=== PATIENT | female | born 1995 | race Caucasian/White ===

== ENCOUNTER 2024-04-03 00:42 | Emergency (ER) | payer SELFPAY ==
[~2024-04-03] VITALS: Ht 170.2 cm; Wt 73.0 kg
[2024-04-03 00:49] VITALS: BP 113/66; PULSE 100; RESP 16; TEMP 98.1; O2SAT 97
[2024-04-03] MEDS: TETANUS, DIPHTHERIA, PERTUSSIS VAC/PF 0.5ML (>10YR OLD) IM ONE (02:45)
== END 2024-04-03 03:06 | disposition home or self-care (01) ==
LOC: ER 00:57
DX: S01.81XA Laceration without foreign body of other part of head, initial encounter (principal); X58.XXXA Exposure to other specified factors, initial encounter; Y93.89 Activity, other specified; Y92.89 Other specified places as the place of occurrence of the external cause; Y99.8 Other external cause status
CPT/HCPCS: 12001; 99282